=== PATIENT | female | born 2000 | race Caucasian/White ===

== ENCOUNTER 2021-12-01 01:15 | Emergency (ER) | payer SELFPAY ==
[2021-12-01] MEDS ORDERED: Ketamine 50 MG/ML (10ML VIAL) ONE (01:17)
[2021-12-01] MEDS ORDERED: Boostrix 0.5 ML (Tdap) VIAL ONE (01:52)
[2021-12-01] MEDS ORDERED: Lorazepam 2 MG/ML VIAL ONE (01:56)
[2021-12-01] MEDS ORDERED: Lidocaine 1% w/Epinephrine 1:100K 20 ML VIAL ONE (02:01)
[2021-12-01] MEDS ORDERED: Lidocaine 1% PF 5 ML VIAL ONE (02:07)
[2021-12-01] MEDS ORDERED: Bacitracin 1 PK ONE (03:25)
== END 2021-12-01 04:17 | disposition home or self-care (01) ==
LOC: ERS 01:15
DX: S02.2XXA Fracture of nasal bones, initial encounter for closed fracture (principal); S01.81XA Laceration without foreign body of other part of head, initial encounter; F10.129 Alcohol abuse with intoxication, unspecified; W17.89XA Other fall from one level to another, initial encounter; Z23 Encounter for immunization
CPT/HCPCS: 12013; 70450; 70486; 72125; 90471; 90715; 96374; J2060